=== PATIENT | female | born 2000 | race Caucasian/White ===

== ENCOUNTER 2022-03-14 17:11 | Emergency (ER) | payer OTHER ==
[2022-03-14] MEDS ORDERED: MOTRIN600 MG PO (18:16)
[2022-03-14] MEDS ORDERED: AMOX TR-K CLV1 EAC4 PO (18:16)
== END 2022-03-14 19:06 | disposition home or self-care (01) ==
LOC: FER 17:11
DX: S81.831A Puncture wound without foreign body, right lower leg, initial encounter (principal); S41.132A Puncture wound without foreign body of left upper arm, initial encounter; S61.230A Puncture wound without foreign body of right index finger without damage to nail, initial encounter; W54.0XXA Bitten by dog, initial encounter; Y92.009 Unspecified place in unspecified non-institutional (private) residence as the place of occurrence of the external cause; Z28.310 Unvaccinated for COVID-19
CPT/HCPCS: 99283